=== PATIENT | male | born 1935 | race African-American/Black ===

== ENCOUNTER 2020-08-17 17:07 | Inpatient (IN) | payer MEDICARE, BC ==
[2020-08-17] MEDS: Doxazosin 2 MG TAB PO SCH (20:48)
[2020-08-17] MEDS: Cefdinir 300 MG CAP PO SCH (20:48)
[2020-08-17] MEDS: Atorvastatin Calcium 10 MG TAB PO SCH (20:49)
[2020-08-17] MEDS: Colchicine 0.6 MG TAB PO SCH (22:04)
[2020-08-18 05:52] LABS: #Basophils 0.1 thou/uL (0.0-0.2); #Eosinphils 0.2 thou/uL (0.0-0.7); #Lymphocytes 1.3 thou/uL (1.20-3.40); #Monocytes 0.4 thou/uL (0.11-0.59); #Neutrophils 3.5 thou/uL (1.40-6.50); %Basophils 1.1 % (0.0-1.0); %Eosinophils 3.2 % (0.0-10.0); %Lymphocytes 23.5 % (21.0-51.0); %Monocytes 7.8 % (0.0-10.0); %Neutrophils 64.5 % (42.0-75.0); Hemoglobin 11.9 g/dL (14.0-18.0); Mean Corpuscular HGB CONC 32.4 g/dL (32.0-36.0); Mean Corpuscular Hemoglobin 27.8 pg (27.0-31.0); Mean Corpuscular Volume 85.7 fL (78.0-98.0); Mean Platelet Volume 8.4 fL (7.4-10.4); Platelet Count 284 thou/uL (130-400); RBC Distribution Width 13.5 % (11.5-14.5); White Blood Cell (WBC) Count 5.5 thou/uL (4.8-10.8)
[2020-08-18 05:58] LABS: INR-International Normal Ratio 1.9; Prothrombin Time 22.6 sec (12.0-14.7)
[2020-08-18 06:05] LABS: Anion Gap 11 mmol/L (10-20); BUN (Urea Nitrogen) 21 mg/dL (8.4-25.7); Calc. Creatinine Clearance 78 mL/min (70-130); Calcium 9.1 mg/dL (7.8-10.44); Carbon Dioxide 25 mmol/L (23-31); Chloride 106 mmol/L (98-107); Glucose 122 mg/dL (83-110); Potassium 3.4 mmol/L (3.5-5.1); Sodium 139 mmol/L (136-145)
[2020-08-18] MEDS: Acetaminophen 325 MG TAB PO PRN (07:54)
[2020-08-18] MEDS: Furosemide 20 MG TAB PO SCH ×2 (07:55→14:56)
[2020-08-18] MEDS: Aspirin Chewable 81 MG TAB PO SCH (07:55)
[2020-08-18] MEDS: Cefdinir 300 MG CAP PO SCH ×2 (07:55→21:07)
[2020-08-18] MEDS: Allopurinol 100 MG TAB PO SCH (07:55)
[2020-08-18] MEDS: Finasteride 5 MG TAB PO SCH (07:56)
[2020-08-18] MEDS: Multivitamin W/ Minerals 1 TAB PO SCH (07:56)
[2020-08-18] MEDS: Polyethylene Glycol 3350 17 GM Packet PO SCH (07:56)
[2020-08-18] MEDS ORDERED: Potassium Chloride 20 MEQ TAB PO SCH (08:30)
[2020-08-18] MEDS ORDERED: Warfarin Sodium 2 MG TAB PO SCH (09:00)
[2020-08-18] MEDS: Ondansetron ODT 4 MG TAB PO PRN (11:22)
[2020-08-18] MEDS: Colchicine 0.6 MG TAB PO SCH ×2 (11:23→22:12)
[2020-08-18] MEDS ORDERED: Warfarin Sodium 2.5 MG TAB PO SCH (17:00)
[2020-08-18] MEDS: Doxazosin 2 MG TAB PO SCH (21:06)
[2020-08-18] MEDS: Atorvastatin Calcium 10 MG TAB PO SCH (21:07)
[2020-08-19 05:10] LABS: INR-International Normal Ratio 1.7; Prothrombin Time 20.7 sec (12.0-14.7)
[2020-08-19] MEDS: Polyethylene Glycol 3350 17 GM Packet PO SCH (09:47)
[2020-08-19] MEDS: Finasteride 5 MG TAB PO SCH (09:48)
[2020-08-19] MEDS: Allopurinol 100 MG TAB PO SCH (09:48)
[2020-08-19] MEDS: Multivitamin W/ Minerals 1 TAB PO SCH (09:48)
[2020-08-19] MEDS: Cefdinir 300 MG CAP PO SCH ×2 (09:48→21:06)
[2020-08-19] MEDS: Furosemide 20 MG TAB PO SCH ×2 (09:48→15:22)
[2020-08-19] MEDS: Aspirin Chewable 81 MG TAB PO SCH (09:49)
[2020-08-19] MEDS: Colchicine 0.6 MG TAB PO SCH ×2 (11:34→22:26)
[2020-08-19] MEDS: Ondansetron ODT 4 MG TAB PO PRN (15:32)
[2020-08-19] MEDS: Warfarin Sodium 3 MG TAB PO SCH (17:27)
[2020-08-19] MEDS: Atorvastatin Calcium 10 MG TAB PO SCH (21:06)
[2020-08-19] MEDS: Doxazosin 2 MG TAB PO SCH (21:07)
[2020-08-20 05:27] LABS: Prothrombin Time 22.7 sec (12.0-14.7)
[2020-08-20 05:28] LABS: Anion Gap 14 mmol/L (10-20); BUN (Urea Nitrogen) 22 mg/dL (8.4-25.7); Calc. Creatinine Clearance 68 mL/min (70-130); Calcium 9.2 mg/dL (7.8-10.44); Carbon Dioxide 24 mmol/L (23-31); Chloride 106 mmol/L (98-107); Glucose 113 mg/dL (83-110); Potassium 3.6 mmol/L (3.5-5.1); Sodium 140 mmol/L (136-145)
[2020-08-20] MEDS: Finasteride 5 MG TAB PO SCH (08:32)
[2020-08-20] MEDS: Cefdinir 300 MG CAP PO SCH ×2 (08:32→21:27)
[2020-08-20] MEDS: Multivitamin W/ Minerals 1 TAB PO SCH (08:32)
[2020-08-20] MEDS: Allopurinol 100 MG TAB PO SCH (08:32)
[2020-08-20] MEDS: Aspirin Chewable 81 MG TAB PO SCH (08:32)
[2020-08-20] MEDS: Polyethylene Glycol 3350 17 GM Packet PO SCH (08:33)
[2020-08-20] MEDS: Furosemide 20 MG TAB PO SCH ×2 (09:22→14:33)
[2020-08-20] MEDS: Colchicine 0.6 MG TAB PO SCH ×2 (11:57→23:05)
[2020-08-20] MEDS: Warfarin Sodium 3 MG TAB PO SCH (17:24)
[2020-08-20] MEDS: Doxazosin 2 MG TAB PO SCH (21:26)
[2020-08-20] MEDS: Atorvastatin Calcium 10 MG TAB PO SCH (21:27)
[2020-08-20] MEDS: Acetaminophen 325 MG TAB PO PRN (21:27)
[2020-08-21 05:40] LABS: Prothrombin Time 23.1 sec (12.0-14.7)
[2020-08-21 06:17] LABS: #Basophils 0.1 thou/uL (0.0-0.2); #Eosinphils 0.3 thou/uL (0.0-0.7); #Lymphocytes 1.5 thou/uL (1.20-3.40); #Monocytes 0.4 thou/uL (0.11-0.59); #Neutrophils 2.9 thou/uL (1.40-6.50); %Basophils 1.4 % (0.0-1.0); %Lymphocytes 30.1 % (21.0-51.0); %Monocytes 7.5 % (0.0-10.0); %Neutrophils 56.1 % (42.0-75.0); Hemoglobin 11.7 g/dL (14.0-18.0); Mean Corpuscular HGB CONC 31.1 g/dL (32.0-36.0); Mean Corpuscular Hemoglobin 27.4 pg (27.0-31.0); Mean Corpuscular Volume 88.1 fL (78.0-98.0); Mean Platelet Volume 7.9 fL (7.4-10.4); Platelet Count 283 thou/uL (130-400); RBC Distribution Width 14.2 % (11.5-14.5); Red Blood Cell (RBC) Count 4.26 mill/uL (4.70-6.10); White Blood Cell (WBC) Count 5.1 thou/uL (4.8-10.8)
[2020-08-21] MEDS: Aspirin Chewable 81 MG TAB PO SCH (08:31)
[2020-08-21] MEDS: Allopurinol 100 MG TAB PO SCH (08:31)
[2020-08-21] MEDS: Finasteride 5 MG TAB PO SCH (08:31)
[2020-08-21] MEDS: Furosemide 20 MG TAB PO SCH ×2 (08:31→13:41)
[2020-08-21] MEDS: Multivitamin W/ Minerals 1 TAB PO SCH (08:31)
[2020-08-21] MEDS: Polyethylene Glycol 3350 17 GM Packet PO SCH (08:32)
[2020-08-21] MEDS: Colchicine 0.6 MG TAB PO SCH ×2 (11:37→23:16)
[2020-08-21] MEDS: Warfarin Sodium 3 MG TAB PO SCH (17:23)
[2020-08-21] MEDS: Doxazosin 2 MG TAB PO SCH (21:20)
[2020-08-21] MEDS: Atorvastatin Calcium 10 MG TAB PO SCH (21:21)
[2020-08-22 05:36] LABS: INR-International Normal Ratio 2.1; Prothrombin Time 23.9 sec (12.0-14.7)
[2020-08-22] MEDS: Allopurinol 100 MG TAB PO SCH (09:07)
[2020-08-22] MEDS: Aspirin Chewable 81 MG TAB PO SCH (09:08)
[2020-08-22] MEDS: Multivitamin W/ Minerals 1 TAB PO SCH (09:08)
[2020-08-22] MEDS: Polyethylene Glycol 3350 17 GM Packet PO SCH (09:08)
[2020-08-22] MEDS: Furosemide 20 MG TAB PO SCH ×2 (09:08→15:35)
[2020-08-22] MEDS: Finasteride 5 MG TAB PO SCH (09:08)
[2020-08-22] MEDS: Colchicine 0.6 MG TAB PO SCH ×2 (11:28→22:47)
[2020-08-22] MEDS: Ondansetron ODT 4 MG TAB PO PRN (15:39)
[2020-08-22] MEDS: Warfarin Sodium 3 MG TAB PO SCH (16:14)
[2020-08-22] MEDS: Doxazosin 2 MG TAB PO SCH (20:55)
[2020-08-22] MEDS: Atorvastatin Calcium 10 MG TAB PO SCH (20:56)
[2020-08-23 05:31] LABS: INR-International Normal Ratio 2.2; Prothrombin Time 25.1 sec (12.0-14.7)
[2020-08-23] MEDS: Allopurinol 100 MG TAB PO SCH (09:20)
[2020-08-23] MEDS: Multivitamin W/ Minerals 1 TAB PO SCH (09:20)
[2020-08-23] MEDS: Furosemide 20 MG TAB PO SCH ×2 (09:21→14:03)
[2020-08-23] MEDS: Aspirin Chewable 81 MG TAB PO SCH (09:21)
[2020-08-23] MEDS: Finasteride 5 MG TAB PO SCH (09:21)
[2020-08-23] MEDS: Acetaminophen 325 MG TAB PO PRN (09:22)
[2020-08-23] MEDS: Polyethylene Glycol 3350 17 GM Packet PO SCH (09:22)
[2020-08-23] MEDS: Colchicine 0.6 MG TAB PO SCH (11:40)
[2020-08-23] MEDS: Ondansetron ODT 4 MG TAB SL PRN (11:40)
[2020-08-23] MEDS: Warfarin Sodium 3 MG TAB PO SCH (17:42)
[2020-08-23] MEDS: Atorvastatin Calcium 10 MG TAB PO SCH (20:35)
[2020-08-23] MEDS: Doxazosin 2 MG TAB PO SCH (20:36)
[2020-08-24 05:22] LABS: INR-International Normal Ratio 2.2; Prothrombin Time 25.3 sec (12.0-14.7)
[2020-08-24] MEDS: Allopurinol 100 MG TAB PO SCH (09:20)
[2020-08-24] MEDS: Multivitamin W/ Minerals 1 TAB PO SCH (09:20)
[2020-08-24] MEDS: Aspirin Chewable 81 MG TAB PO SCH (09:20)
[2020-08-24] MEDS: Finasteride 5 MG TAB PO SCH (09:20)
[2020-08-24] MEDS: Furosemide 20 MG TAB PO SCH ×2 (09:21→14:36)
[2020-08-24] MEDS: Polyethylene Glycol 3350 17 GM Packet PO SCH (09:21)
[2020-08-24] MEDS: Warfarin Sodium 3 MG TAB PO SCH (16:16)
[2020-08-24] MEDS: Doxazosin 2 MG TAB PO SCH (20:55)
[2020-08-24] MEDS: Atorvastatin Calcium 10 MG TAB PO SCH (20:55)
[2020-08-25 05:16] LABS: INR-International Normal Ratio 2.5; Prothrombin Time 27.1 sec (12.0-14.7)
[2020-08-25 05:21] LABS: Chloride 107 mmol/L (98-107)
[2020-08-25 05:23] LABS: Anion Gap 11 mmol/L (10-20); BUN (Urea Nitrogen) 20 mg/dL (8.4-25.7); Calc. Creatinine Clearance 72 mL/min (70-130); Calcium 8.9 mg/dL (7.8-10.44); Carbon Dioxide 26 mmol/L (23-31); Glucose 104 mg/dL (83-110); Potassium 3.6 mmol/L (3.5-5.1); Sodium 140 mmol/L (136-145)
[2020-08-25] MEDS: Allopurinol 100 MG TAB PO SCH (09:03)
[2020-08-25] MEDS: Furosemide 20 MG TAB PO SCH ×2 (09:03→14:27)
[2020-08-25] MEDS: Aspirin Chewable 81 MG TAB PO SCH (09:03)
[2020-08-25] MEDS: Polyethylene Glycol 3350 17 GM Packet PO SCH (09:03)
[2020-08-25] MEDS: Finasteride 5 MG TAB PO SCH (09:03)
[2020-08-25] MEDS: Multivitamin W/ Minerals 1 TAB PO SCH (09:03)
[2020-08-25] MEDS: Ondansetron ODT 4 MG TAB SL PRN (10:47)
[2020-08-25] MEDS: Warfarin Sodium 3 MG TAB PO SCH (17:14)
[2020-08-25] MEDS: Atorvastatin Calcium 10 MG TAB PO SCH (21:29)
[2020-08-25] MEDS: Doxazosin 2 MG TAB PO SCH (21:29)
[2020-08-26 05:21] LABS: INR-International Normal Ratio 2.6; Prothrombin Time 28.5 sec (12.0-14.7)
[2020-08-26] MEDS: Ondansetron ODT 4 MG TAB PO SCH (06:16)
[2020-08-26] MEDS: Furosemide 20 MG TAB PO SCH ×2 (07:58→14:31)
[2020-08-26] MEDS: Finasteride 5 MG TAB PO SCH (07:58)
[2020-08-26] MEDS: Polyethylene Glycol 3350 17 GM Packet PO SCH (07:58)
[2020-08-26] MEDS: Aspirin Chewable 81 MG TAB PO SCH (07:59)
[2020-08-26] MEDS: Multivitamin W/ Minerals 1 TAB PO SCH (07:59)
[2020-08-26] MEDS: Allopurinol 100 MG TAB PO SCH (07:59)
[2020-08-26] MEDS: Warfarin Sodium 3 MG TAB PO SCH (17:09)
[2020-08-26] MEDS: Atorvastatin Calcium 10 MG TAB PO SCH (20:56)
[2020-08-26] MEDS: Doxazosin 2 MG TAB PO SCH (20:56)
[2020-08-27 05:30] LABS: INR-International Normal Ratio 2.6; Prothrombin Time 28.6 sec (12.0-14.7)
[2020-08-27] MEDS: Ondansetron ODT 4 MG TAB PO SCH (06:29)
[2020-08-27] MEDS: Aspirin Chewable 81 MG TAB PO SCH (09:27)
[2020-08-27] MEDS: Allopurinol 100 MG TAB PO SCH (09:27)
[2020-08-27] MEDS: Furosemide 20 MG TAB PO SCH ×2 (09:27→13:19)
[2020-08-27] MEDS: Finasteride 5 MG TAB PO SCH (09:27)
[2020-08-27] MEDS: Multivitamin W/ Minerals 1 TAB PO SCH (09:27)
[2020-08-27] MEDS: Polyethylene Glycol 3350 17 GM Packet PO SCH (09:29)
[2020-08-27] MEDS ORDERED: GUAIFENESIN SF SOLN 200 MG/10 ML UDCUP PO PRN (12:26)
[2020-08-27] MEDS ORDERED: Furosemide 40 MG TAB PO SCH (12:30)
[2020-08-27 13:38] LABS: #Basophils 0.1 thou/uL (0.0-0.2); #Eosinphils 0.2 thou/uL (0.0-0.7); #Lymphocytes 1.4 thou/uL (1.20-3.40); #Monocytes 0.4 thou/uL (0.11-0.59); #Neutrophils 3.9 thou/uL (1.40-6.50); %Basophils 1.1 % (0.0-1.0); %Lymphocytes 23.1 % (21.0-51.0); %Monocytes 6.5 % (0.0-10.0); %Neutrophils 65.4 % (42.0-75.0); Hemoglobin 11.7 g/dL (14.0-18.0); Mean Corpuscular HGB CONC 30.3 g/dL (32.0-36.0); Mean Corpuscular Hemoglobin 27.9 pg (27.0-31.0); Mean Corpuscular Volume 92.2 fL (78.0-98.0); Mean Platelet Volume 8.7 fL (7.4-10.4); Platelet Count 220 thou/uL (130-400); RBC Distribution Width 15.4 % (11.5-14.5); White Blood Cell (WBC) Count 5.9 thou/uL (4.8-10.8)
[2020-08-27 13:55] LABS: Anion Gap 13 mmol/L (10-20); BUN (Urea Nitrogen) 17 mg/dL (8.4-25.7); Calc. Creatinine Clearance 69 mL/min (70-130); Calcium 9.2 mg/dL (7.8-10.44); Carbon Dioxide 26 mmol/L (23-31); Chloride 106 mmol/L (98-107); Glucose 133 mg/dL (83-110); Potassium 3.9 mmol/L (3.5-5.1); Sodium 141 mmol/L (136-145)
[2020-08-27] MEDS: Warfarin Sodium 3 MG TAB PO SCH (16:13)
[2020-08-27] MEDS: Doxazosin 2 MG TAB PO SCH (20:50)
[2020-08-27] MEDS: Atorvastatin Calcium 10 MG TAB PO SCH (20:50)
[2020-08-28] MEDS: Ondansetron ODT 4 MG TAB PO SCH (06:07)
[2020-08-28] MEDS: Multivitamin W/ Minerals 1 TAB PO SCH (08:38)
[2020-08-28] MEDS: Finasteride 5 MG TAB PO SCH (08:38)
[2020-08-28] MEDS: Allopurinol 100 MG TAB PO SCH (08:38)
[2020-08-28] MEDS: Polyethylene Glycol 3350 17 GM Packet PO SCH (08:39)
[2020-08-28] MEDS: Furosemide 20 MG TAB PO SCH ×2 (08:39→13:44)
[2020-08-28] MEDS: Aspirin Chewable 81 MG TAB PO SCH (08:39)
[2020-08-28] MEDS ORDERED: guaiFENesin 100 MG/5 ML UDCUP ONE (09:04)
[2020-08-28] MEDS: Warfarin Sodium 3 MG TAB PO SCH (16:50)
[2020-08-28] MEDS: Doxazosin 2 MG TAB PO SCH (20:33)
[2020-08-28] MEDS: Atorvastatin Calcium 10 MG TAB PO SCH (20:34)
[2020-08-29] MEDS: Ondansetron ODT 4 MG TAB PO SCH (06:13)
[2020-08-29] MEDS: Aspirin Chewable 81 MG TAB PO SCH (08:48)
[2020-08-29] MEDS: Allopurinol 100 MG TAB PO SCH (08:48)
[2020-08-29] MEDS: Finasteride 5 MG TAB PO SCH (08:49)
[2020-08-29] MEDS: Multivitamin W/ Minerals 1 TAB PO SCH (08:49)
[2020-08-29] MEDS: Furosemide 20 MG TAB PO SCH ×2 (08:49→14:16)
[2020-08-29] MEDS: Polyethylene Glycol 3350 17 GM Packet PO SCH (08:50)
[2020-08-29] MEDS: Warfarin Sodium 3 MG TAB PO SCH (16:29)
[2020-08-29] MEDS: Doxazosin 2 MG TAB PO SCH (20:23)
[2020-08-29] MEDS: Atorvastatin Calcium 10 MG TAB PO SCH (20:24)
[2020-08-30 05:34] LABS: INR-International Normal Ratio 2.7; Prothrombin Time 29.1 sec (12.0-14.7)
[2020-08-30] MEDS: Ondansetron ODT 4 MG TAB PO SCH (06:03)
[2020-08-30] MEDS: Allopurinol 100 MG TAB PO SCH (08:21)
[2020-08-30] MEDS: Aspirin Chewable 81 MG TAB PO SCH (08:21)
[2020-08-30] MEDS: Multivitamin W/ Minerals 1 TAB PO SCH (08:22)
[2020-08-30] MEDS: Finasteride 5 MG TAB PO SCH (08:22)
[2020-08-30] MEDS: Polyethylene Glycol 3350 17 GM Packet PO SCH (08:22)
[2020-08-30] MEDS: Furosemide 20 MG TAB PO SCH ×2 (08:22→14:14)
[2020-08-30] MEDS: guaiFENesin 100 MG/5 ML UDCUP PO PRN (17:18)
[2020-08-30] MEDS: Warfarin Sodium 3 MG TAB PO SCH (17:18)
[2020-08-30] MEDS: Doxazosin 2 MG TAB PO SCH (20:50)
[2020-08-30] MEDS: Atorvastatin Calcium 10 MG TAB PO SCH (20:51)
[2020-08-31] MEDS: Ondansetron ODT 4 MG TAB PO SCH (05:39)
[2020-08-31] MEDS: Multivitamin W/ Minerals 1 TAB PO SCH (08:43)
[2020-08-31] MEDS: Finasteride 5 MG TAB PO SCH (08:43)
[2020-08-31] MEDS: Furosemide 20 MG TAB PO SCH (08:44)
[2020-08-31] MEDS: Allopurinol 100 MG TAB PO SCH (08:44)
[2020-08-31] MEDS: Aspirin Chewable 81 MG TAB PO SCH (08:44)
[2020-08-31] MEDS: Polyethylene Glycol 3350 17 GM Packet PO SCH (08:45)
[2020-08-31] MEDS ORDERED: Furosemide 20 MG TAB PO SCH (09:15)
[2020-08-31] MEDS: Furosemide 40 MG TAB PO SCH (13:23)
[2020-08-31] MEDS: Warfarin Sodium 3 MG TAB PO SCH (17:34)
[2020-08-31] MEDS: Atorvastatin Calcium 10 MG TAB PO SCH (20:17)
[2020-08-31] MEDS: Doxazosin 2 MG TAB PO SCH (20:17)
[2020-09-01 05:54] LABS: Anion Gap 12 mmol/L (10-20); BUN (Urea Nitrogen) 15 mg/dL (8.4-25.7); Calc. Creatinine Clearance 77 mL/min (70-130); Calcium 9.1 mg/dL (7.8-10.44); Carbon Dioxide 28 mmol/L (23-31); Chloride 105 mmol/L (98-107); Glucose 106 mg/dL (83-110); Potassium 3.6 mmol/L (3.5-5.1); Sodium 141 mmol/L (136-145)
[2020-09-01] MEDS: Ondansetron ODT 4 MG TAB PO SCH (06:00)
[2020-09-01] MEDS: Multivitamin W/ Minerals 1 TAB PO SCH (09:47)
[2020-09-01] MEDS: Allopurinol 100 MG TAB PO SCH (09:47)
[2020-09-01] MEDS: Furosemide 40 MG TAB PO SCH ×2 (09:48→13:24)
[2020-09-01] MEDS: Polyethylene Glycol 3350 17 GM Packet PO SCH (09:48)
[2020-09-01] MEDS: Finasteride 5 MG TAB PO SCH (09:48)
[2020-09-01] MEDS: Aspirin Chewable 81 MG TAB PO SCH (09:48)
[2020-09-01 12:31] LABS: #Eosinphils 0.1 thou/uL (0.0-0.7); #Lymphocytes 1.4 thou/uL (1.20-3.40); #Monocytes 0.4 thou/uL (0.11-0.59); #Neutrophils 3.5 thou/uL (1.40-6.50); %Basophils 0.6 % (0.0-1.0); %Eosinophils 2.4 % (0.0-10.0); %Lymphocytes 25.2 % (21.0-51.0); %Neutrophils 63.8 % (42.0-75.0); Mean Corpuscular HGB CONC 29.8 g/dL (32.0-36.0); Mean Corpuscular Hemoglobin 27.3 pg (27.0-31.0); Mean Corpuscular Volume 91.7 fL (78.0-98.0); Mean Platelet Volume 7.9 fL (7.4-10.4); Platelet Count 145 thou/uL (130-400); RBC Distribution Width 15.8 % (11.5-14.5); Red Blood Cell (RBC) Count 4.02 mill/uL (4.70-6.10); White Blood Cell (WBC) Count 5.4 thou/uL (4.8-10.8)
[2020-09-01] MEDS: Acetaminophen 325 MG TAB PO PRN (13:25)
[2020-09-01] MEDS: Warfarin Sodium 3 MG TAB PO SCH (16:51)
[2020-09-01] MEDS: Doxazosin 2 MG TAB PO SCH (20:50)
[2020-09-01] MEDS: Atorvastatin Calcium 10 MG TAB PO SCH (20:51)
[2020-09-01] MEDS: guaiFENesin ER 600 MG TAB PO SCH (20:51)
[2020-09-02 05:09] LABS: INR-International Normal Ratio 2.8; Prothrombin Time 30.5 sec (12.0-14.7)
[2020-09-02] MEDS: Ondansetron ODT 4 MG TAB PO SCH (06:10)
[2020-09-02] MEDS: Finasteride 5 MG TAB PO SCH (09:02)
[2020-09-02] MEDS: guaiFENesin ER 600 MG TAB PO SCH ×2 (09:02→21:06)
[2020-09-02] MEDS: Multivitamin W/ Minerals 1 TAB PO SCH (09:02)
[2020-09-02] MEDS: Allopurinol 100 MG TAB PO SCH (09:02)
[2020-09-02] MEDS: Furosemide 40 MG TAB PO SCH ×2 (09:02→13:30)
[2020-09-02] MEDS: Aspirin Chewable 81 MG TAB PO SCH (09:03)
[2020-09-02] MEDS: Polyethylene Glycol 3350 17 GM Packet PO SCH (09:03)
[2020-09-02] MEDS: Warfarin Sodium 3 MG TAB PO SCH (17:30)
[2020-09-02] MEDS: Doxazosin 2 MG TAB PO SCH (21:06)
[2020-09-02] MEDS: Atorvastatin Calcium 10 MG TAB PO SCH (21:06)
[2020-09-03] MEDS: Polyethylene Glycol 3350 17 GM Packet PO SCH (08:59)
[2020-09-03] MEDS: Allopurinol 100 MG TAB PO SCH (09:00)
[2020-09-03] MEDS: Aspirin Chewable 81 MG TAB PO SCH (09:00)
[2020-09-03] MEDS: Furosemide 40 MG TAB PO SCH ×2 (09:01→14:32)
[2020-09-03] MEDS: Finasteride 5 MG TAB PO SCH (09:01)
[2020-09-03] MEDS: guaiFENesin ER 600 MG TAB PO SCH ×2 (09:01→21:05)
[2020-09-03] MEDS: Multivitamin W/ Minerals 1 TAB PO SCH (09:02)
[2020-09-03] MEDS: Acetaminophen 325 MG TAB PO PRN (09:07)
[2020-09-03] MEDS: guaiFENesin 100 MG/5 ML UDCUP PO PRN (15:42)
[2020-09-03] MEDS: Warfarin Sodium 3 MG TAB PO SCH (17:50)
[2020-09-03] MEDS: Colchicine 0.6 MG TAB PO SCH (21:05)
[2020-09-03] MEDS: Atorvastatin Calcium 10 MG TAB PO SCH (21:06)
[2020-09-03] MEDS: Doxazosin 2 MG TAB PO SCH (21:06)
[2020-09-04] MEDS: Acetaminophen 325 MG TAB PO PRN ×3 (00:20→16:45)
[2020-09-04 05:41] LABS: Anion Gap 13 mmol/L (10-20); BUN (Urea Nitrogen) 21 mg/dL (8.4-25.7); Calc. Creatinine Clearance 79 mL/min (70-130); Calcium 8.9 mg/dL (7.8-10.44); Carbon Dioxide 23 mmol/L (23-31); Chloride 104 mmol/L (98-107); Glucose 104 mg/dL (83-110); Potassium 3.8 mmol/L (3.5-5.1); Sodium 136 mmol/L (136-145)
[2020-09-04] MEDS: Ondansetron ODT 4 MG TAB PO SCH ×2 (05:53→07:08)
[2020-09-04] MEDS: Allopurinol 100 MG TAB PO SCH (08:57)
[2020-09-04] MEDS: Aspirin Chewable 81 MG TAB PO SCH (08:58)
[2020-09-04] MEDS: Colchicine 0.6 MG TAB PO SCH ×2 (08:58→21:23)
[2020-09-04] MEDS: Furosemide 40 MG TAB PO SCH ×2 (08:59→15:24)
[2020-09-04] MEDS: Finasteride 5 MG TAB PO SCH (08:59)
[2020-09-04] MEDS: Polyethylene Glycol 3350 17 GM Packet PO SCH (08:59)
[2020-09-04] MEDS: Multivitamin W/ Minerals 1 TAB PO SCH (08:59)
[2020-09-04] MEDS: guaiFENesin ER 600 MG TAB PO SCH ×2 (08:59→21:23)
[2020-09-04] MEDS: Warfarin Sodium 3 MG TAB PO SCH (16:45)
[2020-09-04] MEDS: guaiFENesin 100 MG/5 ML UDCUP PO PRN (16:46)
[2020-09-04 17:03] VITALS: BMI 33.0
[2020-09-04] MEDS: Atorvastatin Calcium 10 MG TAB PO SCH (21:23)
[2020-09-04] MEDS: Doxazosin 2 MG TAB PO SCH (21:23)
[2020-09-05 05:28] LABS: INR-International Normal Ratio 2.6; Prothrombin Time 28.1 sec (12.0-14.7)
[2020-09-05] MEDS: Ondansetron ODT 4 MG TAB PO SCH (06:06)
[2020-09-05] MEDS: Colchicine 0.6 MG TAB PO SCH ×2 (08:57→21:02)
[2020-09-05] MEDS: Finasteride 5 MG TAB PO SCH (08:57)
[2020-09-05] MEDS: Aspirin Chewable 81 MG TAB PO SCH (08:57)
[2020-09-05] MEDS: Furosemide 40 MG TAB PO SCH ×2 (08:57→14:34)
[2020-09-05] MEDS: Multivitamin W/ Minerals 1 TAB PO SCH (08:57)
[2020-09-05] MEDS: Polyethylene Glycol 3350 17 GM Packet PO SCH (08:57)
[2020-09-05] MEDS: Allopurinol 100 MG TAB PO SCH (08:57)
[2020-09-05] MEDS: guaiFENesin ER 600 MG TAB PO SCH ×2 (08:57→21:01)
[2020-09-05] MEDS: Warfarin Sodium 3 MG TAB PO SCH (16:12)
[2020-09-05] MEDS: Doxazosin 2 MG TAB PO SCH (21:00)
[2020-09-05] MEDS: Atorvastatin Calcium 10 MG TAB PO SCH (21:01)
[2020-09-06] MEDS: guaiFENesin 100 MG/5 ML UDCUP PO PRN ×2 (05:54→21:32)
[2020-09-06] MEDS: Ondansetron ODT 4 MG TAB PO SCH (05:55)
[2020-09-06] MEDS: Polyethylene Glycol 3350 17 GM Packet PO SCH (10:06)
[2020-09-06] MEDS: Furosemide 40 MG TAB PO SCH ×2 (10:06→15:09)
[2020-09-06] MEDS: Aspirin Chewable 81 MG TAB PO SCH (10:07)
[2020-09-06] MEDS: Allopurinol 100 MG TAB PO SCH (10:08)
[2020-09-06] MEDS: guaiFENesin ER 600 MG TAB PO SCH ×2 (10:08→21:31)
[2020-09-06] MEDS: Colchicine 0.6 MG TAB PO SCH ×2 (10:08→21:31)
[2020-09-06] MEDS: Finasteride 5 MG TAB PO SCH (10:09)
[2020-09-06] MEDS: Multivitamin W/ Minerals 1 TAB PO SCH (10:09)
[2020-09-06] MEDS: Acetaminophen 325 MG TAB PO PRN (10:14)
[2020-09-06] MEDS: Warfarin Sodium 3 MG TAB PO SCH (17:06)
[2020-09-06] MEDS: Atorvastatin Calcium 10 MG TAB PO SCH (21:31)
[2020-09-06] MEDS: Doxazosin 2 MG TAB PO SCH (21:31)
[2020-09-07] MEDS: Ondansetron ODT 4 MG TAB PO SCH (08:30)
[2020-09-07] MEDS: Allopurinol 100 MG TAB PO SCH (08:31)
[2020-09-07] MEDS: Aspirin Chewable 81 MG TAB PO SCH (08:31)
[2020-09-07] MEDS: guaiFENesin ER 600 MG TAB PO SCH ×2 (08:32→20:17)
[2020-09-07] MEDS: Furosemide 40 MG TAB PO SCH ×2 (08:32→14:11)
[2020-09-07] MEDS: Finasteride 5 MG TAB PO SCH (08:32)
[2020-09-07] MEDS: Colchicine 0.6 MG TAB PO SCH ×2 (08:32→20:17)
[2020-09-07] MEDS: Acetaminophen 325 MG TAB PO PRN (08:33)
[2020-09-07] MEDS: Polyethylene Glycol 3350 17 GM Packet PO SCH (08:33)
[2020-09-07] MEDS: Multivitamin W/ Minerals 1 TAB PO SCH (08:33)
[2020-09-07] MEDS: guaiFENesin 100 MG/5 ML UDCUP PO PRN (08:34)
[2020-09-07] MEDS: Warfarin Sodium 3 MG TAB PO SCH (16:18)
[2020-09-07] MEDS: Atorvastatin Calcium 10 MG TAB PO SCH (20:17)
[2020-09-07] MEDS: Doxazosin 2 MG TAB PO SCH (20:18)
[2020-09-08] MEDS: Ondansetron ODT 4 MG TAB PO SCH (06:22)
[2020-09-08 07:32] VITALS: BP 146/94; TEMP 96.1
[2020-09-08] MEDS: Allopurinol 100 MG TAB PO SCH (08:29)
[2020-09-08] MEDS: Colchicine 0.6 MG TAB PO SCH (08:29)
[2020-09-08] MEDS: Aspirin Chewable 81 MG TAB PO SCH (08:29)
[2020-09-08] MEDS: guaiFENesin ER 600 MG TAB PO SCH (08:30)
[2020-09-08] MEDS: Furosemide 40 MG TAB PO SCH (08:30)
[2020-09-08] MEDS: Multivitamin W/ Minerals 1 TAB PO SCH (08:30)
[2020-09-08] MEDS: Finasteride 5 MG TAB PO SCH (08:30)
[2020-09-08] MEDS: Polyethylene Glycol 3350 17 GM Packet PO SCH (08:30)
[2020-09-08] MEDS: Acetaminophen 325 MG TAB PO PRN (08:31)
[2020-09-08] MEDS: guaiFENesin 100 MG/5 ML UDCUP PO PRN (08:32)
== END 2020-09-08 09:50 | disposition home health service (06) | DRG 947 ==
LOC: NAV ACUTE 17:07
PROVIDERS: ADMIT Family Medicine; ATTEND Family Medicine
DX: R53.1 Weakness (principal); I50.33 Acute on chronic diastolic (congestive) heart failure; I13.0 Hypertensive heart and chronic kidney disease with heart failure and stage 1 through stage 4 chronic kidney disease, or unspecified chronic kidney disease; N39.0 Urinary tract infection, site not specified; M10.9 Gout, unspecified; I25.10 Atherosclerotic heart disease of native coronary artery without angina pectoris; E78.5 Hyperlipidemia, unspecified; I48.91 Unspecified atrial fibrillation; Z82.49 Family history of ischemic heart disease and other diseases of the circulatory system; Z79.82 Long term (current) use of aspirin; Z79.01 Long term (current) use of anticoagulants; E87.6 Hypokalemia; R79.1 Abnormal coagulation profile; N18.9 Chronic kidney disease, unspecified; K64.4 Residual hemorrhoidal skin tags; R11.0 Nausea; K21.9 Gastro-esophageal reflux disease without esophagitis; N40.0 Benign prostatic hyperplasia without lower urinary tract symptoms
CPT/HCPCS: 36415; 71045; 80048; 83880; 85025; 85610; 94640; J7620; Q0162